=== PATIENT | male | born 1970 | race Caucasian/White ===

== ENCOUNTER 2023-03-09 18:14 | Emergency (ER) | payer OTHER, BC ==
[2023-03-09] MEDS ORDERED: SODIUM CHLORIDE 0.9% 1000 ML INFUS.BAG IV ONE (18:55)
[2023-03-09 18:57] VITALS: BP 130/80; PULSE 102; RESP 16; TEMP 97.9; BMI 34.0
[2023-03-09 19:18] LABS: HEMATOCRIT 37.8 % (35.4-49); MCHC 34.3 g/dl (32.0-35.9); MEAN CELL VOLUME 84.3 fl (80-96); MEAN PLT VOLUME 7.6 fl (7.5-11.1); PLATELET COUNT 249.6 10^3/uL (134-434); RBC 4.48 10^6/uL (4.00-5.60); RDW 14.6 % (11.9-15.9); WHITE BLOOD COUNT 11.3 10^3/uL (4.0-10.8)
[2023-03-09 19:38] LABS: ALBUMIN 4.2 g/dl (3.4-5.0); BILIRUBIN,TOTAL 0.7 mg/dl (0.2-1); CALCIUM 9.5 mg/dl (8.5-10.1); CREATININE 0.9 mg/dl (0.6-1.3); POTASSIUM 4.2 mmol/L (3.5-5.1); TOT PROT 6.5 g/dl (6.4-8.2)
[2023-03-09 19:52] LABS: PLATELET ESTIMATE ADEQUATE
== END 2023-03-09 20:04 | disposition home or self-care (01) ==
LOC: FER 18:14
DX: T83.9XXA Unspecified complication of genitourinary prosthetic device, implant and graft, initial encounter (principal); R10.30 Lower abdominal pain, unspecified; Y83.1 Surgical operation with implant of artificial internal device as the cause of abnormal reaction of the patient, or of later complication, without mention of misadventure at the time of the procedure
CPT/HCPCS: 36415; 80053; 85025; 99284-25